=== PATIENT | female | born 2000 | race Caucasian/White ===

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

== ENCOUNTER 2022-06-14 04:43 | Emergency (ER) | payer OTHER ==
[~2022-06-14 04:43] MED LIST: TORADOL 10 MG T10 MG PO; ZOFRAN4 MG PO; ZOLOFT100 MG PO
[2022-06-14 06:09] LABS: HEMOGLOBIN 13.8 gm/dl (12.3-15.3); RED BLOOD COUNT 5.24 M/UL (4.00-5.10); WHITE BLOOD COUNT 14.4 K/UL (4.5-11.0)
[2022-06-14] MEDS ORDERED: PREDNISONE20 MG PO (06:30)
[2022-06-14 07:46] LABS: BUN/CREATININE RATIO 15 (0-10)
== END 2022-06-14 06:59 | disposition home or self-care (01) ==
LOC: ER1 04:43
PROVIDERS: Family Medicine
DX: T78.40XA Allergy, unspecified, initial encounter (principal); R21 Rash and other nonspecific skin eruption; Z88.0 Allergy status to penicillin; Z88.2 Allergy status to sulfonamides; F17.290 Nicotine dependence, other tobacco product, uncomplicated
CPT/HCPCS: 80053; 85025; 93005; 99283